=== PATIENT | female | born 1940 | race Caucasian/White ===

== ENCOUNTER 2016-11-09 10:55 | Emergency (ER) | payer MEDICARE, OTHER ==
[2016-11-09 12:07] LABS: Urine Bacteria Absent (Absent); Urine Bilirubin Negative (Negative); Urine Glucose Negative (Negative); Urine Nitrite Negative (Negative)
[2016-11-09] MEDS: NS 0.9% 1000 ML* 2,000 ML IV ONE ×2 (12:08→13:15)
[2016-11-09 12:18] LABS: Hemoglobin 8.9 g/dl (12.0-16.0)
[2016-11-09 12:22] LABS: Hematocrit 27 % (35-47); Mean Corpuscular HGB Conc 33 g/dl (31-36); Mean Corpuscular Hemoglobin 29 pg (27-31); Mean Corpuscular Volume 87 fL (80-97); Mean Platelet Volume 12 um3 (7.4-10.4); Red Blood Count 3.06 10^6/ul (4.0-5.4); Red Cell Distribution Width 16 % (10.5-15); White Blood Count 4.6 10^3/ul (3.5-10.8)
[2016-11-09 12:27] LABS: Add Diff/Slide Review? Slide Review Added; Comments Flag Yes
[2016-11-09 12:33] LABS: Albumin 3.8 g/dL (3.2-5.2); BUN/Creatinine Ratio 19.7 (8-20); C Reactive Protein 10.24 mg/L (< 5.00); Calcium 9.2 mg/dL (8.6-10.3); EGFR African American 44.4 (>60); EGFR Non-African American 34.6 (>60); Globulin 3.1 g/dL (2-4); Potassium 3.6 mmol/L (3.5-5.0); Total Bilirubin 2.1 mg/dL (0.2-1.0); Total Protein 6.9 g/dL (6.4-8.9)
[2016-11-09 12:43] LABS: Add Path Review? YES; Hypochromasia 1+
[2016-11-09 12:44] LABS: Schistocytes 2+
--- NOTE | 2016-11-09 13:02 | RAD ---
Indication: Diplopia. CT of the brain was performed without IV contrast. Ventricular structures are midline. No midline shift is noted. The extra-axial spaces are unremarkable. There is no evidence of intracranial mass or hemorrhage. No other high or low density lesions are identified. Mastoid air cells and paranasal sinuses are otherwise unremarkable. IMPRESSION: No intracranial mass or hemorrhage is noted.
[2016-11-09 13:06] LABS: Troponin I 0.38 ng/mL (<0.04)
[2016-11-09 13:21] LABS: TSH (Thyroid Stimulating Horm) 10.68 mcIU/mL (0.34-5.60)
--- NOTE | 2016-11-09 15:06 | ED ---
Bernardino Delvalle Alfonso, scribed for Sam Funes MD on 11/09/16 at 1331 . Complex/Multi-Sys Presentation - HPI Summary HPI Summary: This patient is a 76 y.o. female presenting to [facility] with a concern of possible allergic reaction since a cat bite on her left arm approximately 5 days ago. The allergic reaction is characterized by petechiae on her body. It is accompanied by a right-sided headache. Sx alleviated and aggravated by nothing. She reports hematuria, loss of appetite, nausea, dizziness, weakness, unsteadiness upon standing, and tremors. Denies vertigo, neck pain, loss of vision, and photophobia. After visiting another ED soon after the cat bite, she was prescribed doxycycline and clindamycin. She stopped taking these prescriptions because her PCP found high kidney function in blood and urine testing. PMHx of HTN for which she takes one aspirin a day and A-fib. No PMHx of CHF or strokes. SHx of occasional drinking. - History Of Current Complaint Chief Complaint: EDGeneral Time Seen by Provider: 11/09/16 11:15 Hx Obtained From: Patient Onset/Duration: Gradual Onset, Lasting Days - approximately 5 days ago., Still Present Timing: Constant Severity Currently: Moderate Severity Initially: Moderate Aggravating Factor(s): Nothing Alleviating Factor(s): Nothing - Allergies/Home Medications Allergies/Adverse Reactions: Allergies Allergy/AdvReac Type Severity Reaction Status Date / Time Penicillin G Allergy Unknown Verified 11/09/16 12:07 Reaction Details Sulfa Antibiotics Allergy Itching Verified 11/09/16 12:07 Home Medications: Home Medications Atorvastatin* [Lipitor 10 MG*] 10 mg PO DAILY 11/09/16 [History Confirmed ] Esomeprazole Magnesium [Nexium] 40 mg PO DAILY 11/09/16 [History Confirmed 11/09] Levothyroxine TAB* [Synthroid TAB*] 125 mcg PO DAILY 11/09/16 [History Confirmed 11/09/16] Ursodiol 1 cap PO TID 11/09/16 [History Confirmed 11/09/16] PMH/Surg Hx/FS Hx/Imm Hx Cardiovascular History: Reports: Hx Atrial Fibrillation Opthamlomology History: Denies: Hx Legally Blind Infectious Disease History: No Infectious Disease History: Denies: Traveled Outside the [place] in Last 30 Days - Family History Known Family History: Positive: Cardiac Disease - Mother positive at unspecified age - Social History Alcohol Use: Occasionally Review of Systems Negative: Fever Positive: Nausea Positive: hematuria Negative: Arthralgia - Neck pain Positive: Rash - petechiae Neurological: Other - Dizziness, unsteadiness upon standing, loss of appetite and tremors; denies vertigo, loss of vision, and photophobia Positive: Headache - Right-sided, Weakness All Other Systems Reviewed And Are Negative: Yes Physical Exam - Summary Physical Exam Summary: The patient is well-nourished in no mild distress. Anxious. The skin is pale and there is a cat bite on her left arm without signs of any infection. Mild ecchymosis around the bite werner. Diffuse petechiae in all extremities. HEENT: The head is normocephalic and atraumatic. The pupils are equal and reactive. The conjunctivae are clear and without drainage. Sclera is not jaundiced or icteric. Nares are patent and without drainage. Mouth reveals dry mucous membranes and the throat is without erythema and exudate. The external ears are intact. The ear canals are patent and without drainage. The tympanic membranes are intact. Neck is supple with full range of motion and non-tender. There are no carotid bruits. There is no neck vein distension. No nuchal rigidity Respiratory: Chest is non-tender. Lungs are clear to auscultation and breath sounds are symmetrical and equal. Cardiovascular: Hear is regular rate and rhythm. There is no murmur or rub auscultated. There is no peripheral edema and pulses are symmetrical and equal. Abdomen: The abdomen is soft and non-tender. There are normal bowel sounds heard in all four quadrants and there is no organomegaly palpated. No CVA tenderness Musculoskeletal: There is no back pain noted. Extremities are non-tender with full range of motion. There is good capillary refill. There is no peripheral edema or calf tenderness elicited. Neurological: Patient is alert and oriented to person, place and time. The patient has symmetrical motor strength in all four extremities. Cranial nerves are grossly intact. Deep tendon reflexes are symmetrical and equal in all four extremities. Psychiatric: The patient has an appropriate affect and does not exhibit any anxiety or depression. Triage Information Reviewed: Yes Vital Signs On Initial Exam: Initial Vitals Temp Pulse Resp BP Pulse Ox 97.5 F 82 20 155/94 100 11/09/16 10:58 11/09/16 10:58 11/09/16 10:58 11/09/16 10:58 11/09/16 10:58 Vital Signs Reviewed: Yes Diagnostics - Vital Signs Vital Signs Temp Pulse Resp BP Pulse Ox 11/09/16 11:03 98.0 F 84 20 155/94 83 11/09/16 10:58 97.5 F 82 20 155/94 100 - Laboratory Lab Results: Lab Results 11/09/16 11/09/16 11/09/16 Range/Units 11:54 12:10 12:10 WBC 4.6 (3.5-10.8) 10^3/ul RBC 3.06 L (4.0-5.4) 10^6/ul Hgb 8.9 L (12.0-16.0) g/dl Hct 27 L (35-47) % MCV 87 (80-97) fL MCH 29 (27-31) pg MCHC 33 (31-36) g/dl RDW 16 H (10.5-15) % Plt Count 8 L* (150-450) 10^3/ul MPV 12 H (7.4-10.4) um3 Neut % (Auto) 60.8 (38-83) % Lymph % (Auto) 28.4 (25-47) % Woodson % (Auto) 8.1 (1-9) % Eos % (Auto) 2.0 (0-6) % Baso % (Auto) 0.7 (0-2) % Absolute Neuts (auto) 2.8 (1.5-7.7) 10^3/ul Absolute Lymphs (auto) 1.3 (1.0-4.8) 10^3/ul Absolute Monos (auto) 0.4 (0-0.8) 10^3/ul Absolute Eos (auto) 0.1 (0-0.6) 10^3/ul Absolute Basos (auto) 0 (0-0.2) 10^3/ul Absolute Nucleated RBC 0 10^3/ul Nucleated RBC % 0 Normal RBC Morphology Not Reportable Hypochromasia 1+ Schistocytes 2+ Hem Pathologist Commnt Pending INR (Anticoag Therapy) 0.97 (0.89-1.11) APTT 29.1 (26.0-36.3) seconds Sodium (133-145) mmol/L Potassium (3.5-5.0) mmol/L Chloride (101-111) mmol/L Carbon Dioxide (22-32) mmol/L Anion Gap (2-11) mmol/L BUN (6-24) mg/dL Creatinine (0.51-0.95) mg/dL Est GFR ( Amer) (>60) Est GFR (Non-Af Amer) (>60) BUN/Creatinine Ratio (8-20) Glucose (70-100) mg/dL Lactic Acid (0.5-2.0) mmol/L Calcium (8.6-10.3) mg/dL Magnesium (1.9-2.7) mg/dL Total Bilirubin (0.2-1.0) mg/dL AST (13-39) U/L ALT (7-52) U/L Alkaline Phosphatase (34-104) U/L Troponin I (<0.04) ng/mL C-Reactive Protein (< 5.00) mg/L Total Protein (6.4-8.9) g/dL Albumin (3.2-5.2) g/dL Globulin (2-4) g/dL Albumin/Globulin Ratio (1-3) TSH (0.34-5.60) mcIU/mL Urine Color Yellow Urine Appearance Clear Urine pH 6.0 (5-9) Ur Specific Canvas 1.004 L (1.010-1.030) Urine Protein Negative (Negative) Urine Ketones Negative (Negative) Urine Blood 2+ H (Negative) Urine Nitrate Negative (Negative) Urine Bilirubin Negative (Negative) Urine Urobilinogen Negative (Negative) Ur Leukocyte Esterase Trace H (Negative) Urine WBC (Auto) Trace(0-5/hpf) (Absent) Urine RBC (Auto) 1+(3-5/hpf) H (Absent) Ur Squamous Epith Cells Present H (Absent) Urine Bacteria Absent (Absent) Urine Glucose Negative (Negative) 11/09/16 11/09/16 Range/Units 12:10 12:10 WBC (3.5-10.8) 10^3/ul RBC (4.0-5.4) 10^6/ul Hgb (12.0-16.0) g/dl Hct (35-47) % MCV (80-97) fL MCH (27-31) pg MCHC (31-36) g/dl RDW (10.5-15) % Plt Count (150-450) 10^3/ul MPV (7.4-10.4) um3 Neut % (Auto) (38-83) % Lymph % (Auto) (25-47) % Woodson % (Auto) (1-9) % Eos % (Auto) (0-6) % Baso % (Auto) (0-2) % Absolute Neuts (auto) (1.5-7.7) 10^3/ul Absolute Lymphs (auto) (1.0-4.8) 10^3/ul Absolute Monos (auto) (0-0.8) 10^3/ul Absolute Eos (auto) (0-0.6) 10^3/ul Absolute Basos (auto) (0-0.2) 10^3/ul Absolute Nucleated RBC 10^3/ul Nucleated RBC % Normal RBC Morphology Hypochromasia Schistocytes Hem Pathologist Commnt INR (Anticoag Therapy) (0.89-1.11) APTT (26.0-36.3) seconds Sodium 135 (133-145) mmol/L Potassium 3.6 (3.5-5.0) mmol/L Chloride 102 (101-111) mmol/L Carbon Dioxide 27 (22-32) mmol/L Anion Gap 6 (2-11) mmol/L BUN 29 H (6-24) mg/dL Creatinine 1.47 H (0.51-0.95) mg/dL Est GFR ( Amer) 44.4 (>60) Est GFR (Non-Af Amer) 34.6 (>60) BUN/Creatinine Ratio 19.7 (8-20) Glucose 82 (70-100) mg/dL Lactic Acid 1.1 (0.5-2.0) mmol/L Calcium 9.2 (8.6-10.3) mg/dL Magnesium 2.0 (1.9-2.7) mg/dL Total Bilirubin 2.10 H (0.2-1.0) mg/dL AST 50 H (13-39) U/L ALT 46 (7-52) U/L Alkaline Phosphatase 182 H (34-104) U/L Troponin I 0.38 H* (<0.04) ng/mL C-Reactive Protein 10.24 H (< 5.00) mg/L Total Protein 6.9 (6.4-8.9) g/dL Albumin 3.8 (3.2-5.2) g/dL Globulin 3.1 (2-4) g/dL Albumin/Globulin Ratio 1.2 (1-3) TSH 10.68 H (0.34-5.60) mcIU/mL Urine Color Urine Appearance Urine pH (5-9) Ur Specific Canvas (1.010-1.030) Urine Protein (Negative) Urine Ketones (Negative) Urine Blood (Negative) Urine Nitrate (Negative) Urine Bilirubin (Negative) Urine Urobilinogen (Negative) Ur Leukocyte Esterase (Negative) Urine WBC (Auto) (Absent) Urine RBC (Auto) (Absent) Ur Squamous Epith Cells (Absent) Urine Bacteria (Absent) Urine Glucose (Negative) Result Diagrams: 11/09/16 12:10 11/09/16 12:10 Lab Statement: Any lab studies that have been ordered have been reviewed, and results considered in the medical decision making process. - CT CT of the brain w/o IV contrast. CT Interpretation: No Acute Changes - No intracranial mass or hemorrhage is noted CT Interpretation Completed By: Radiologist - EKG 1152 Cardiac Rate: NL EKG Rhythm: Sinus Rhythm - BPM 77 EKG Interpretation: Poor R-wave progression, Normal axis, Non stemi. Re-Evaluation - Re-Evaluation First Eval Re-Evaluation Time: 13:26 Complex Multi-Symp Course/Dx Assessment/Plan: This 76 y/o female pt presents to ED with concern of "possible reaction to a cat bite" on her LUE arm 5 days ago. Possitve orthostatic dizziness, trouble with balance, and nausea. Upon examination pt is noted with diffuse petechiae both BUE and BLE. Negative sign of infection or inflammation around bite werner on LUE noted. Mild ecchymosis noted around bite werner. Blood work is noted with platelet count of 8 [address] of 0[address]38. [address] Brain was benign. EKG was noted with poor r-wave progression without ST and with normal axis. 30 minutes critical care time. Pt will be transfered to [facility] for platlet transfusion and electrophorsis. Accepting docotor is Dr. Comer and plan of care was discussed with accepting doctor at 14:48 - Diagnoses Differential Diagnoses/HQI/PQRI: Other - ttp, drug induced, mi Provider Diagnoses: Thrombocytopenia, Renal failure, Elevated LFTs, Anemia - Physician Notifications Discussed Care Of Patient With: Isamar Bolivar Time Discussed With Above Provider: 13:37 Instructed by Provider To: Transfer - [facility] - Critical Care Time Critical Care Time: 30-74 min - 30 minutes Discharge - Discharge Plan Condition: Stable Disposition: TRANS HIGHER LVL OF CARE FAC Referrals: Non Staff,Doctor [Primary Care Provider] - The documentation as recorded by the Bernardino sandoval Alfonso accurately reflects the service I personally performed and the decisions made by , Sam Fuens MD.
[2016-11-09] MEDS ORDERED: Acetaminophen TAB* 325 MG PO ONE (16:32)
[2016-11-09 17:15] VITALS: BP 136/72
--- NOTE | 2016-11-09 23:12 | CONS ---
CONSULTATION REPORT: DATE OF CONSULT: 11/09/16 - EMERGENCY DEPT REQUESTING PHYSICIAN FOR CONSULT: Dr. Funes. REASON FOR CONSULTATION: Evaluation for admission. HISTORY OF PRESENT ILLNESS: Ms. Byrd is a 76-year-old female patient who on Thursday last week, she got bit by a cat. She lives in [place]. She was seen at [facility]. She was started on clindamycin and also started on doxycycline. She said the rash improved; however, she was following with her primary. She had some outpatient blood work done because her urine appeared to be very concentrated and dark, and she actually had a BMP, that sounds like chemistries, and urine obtained. At some point last week, I believe it was either or Thursday, she got a call from her doctor while she was driving to the [place] area to visit her daughter and was told to stop her antibiotics because it appeared that her kidney function had worsened. The patient also was ordered to have an outpatient renal ultrasound while she was here in [place]. She unfortunately today was having symptoms of rash and bruising all over her body. She was having some headache, feeling a little off, was very weak and drowsy and just really fatigued and she has been complaining of nausea. Her daughter was very concerned and brought her in to the hospital. She was evaluated here in the ED. It was noted that she was profoundly thrombocytopenic. She was noted to have an elevated troponin, elevated bilirubin. She had schistocytes on her blood smear and it appeared that she was anemic, which the family says is new. There was concern and we were asked to evaluate for admission. PAST MEDICAL HISTORY: Significant for: 1. AFib. 2. Hypertension. 3. GERD. 4. Hypothyroidism. SURGICAL HISTORY: 1. She has had a right upper lobe tumor extraction done at [facility]. 2. She has had a laparoscopic cholecystectomy. 3. She has had a hysterectomy. HOME MEDICATIONS: According to her recall include: 1. Synthroid 125 mcg daily. 2. Atorvastatin 10 mg daily. 3. Nexium 40 mg daily. 4. Ursodiol 1 capsule p.o. t.i.d. ALLERGIES TO MEDICATIONS: Include PENICILLIN and SULFA. FAMILY HISTORY: Mother had a history of brain cancer. Father had a history of lung cancer. SOCIAL HISTORY: She does not smoke. She does drink a martini a day, but she has not drunk in several days since being ill. She is . Surrogate decision maker is her daughter. REVIEW OF SYSTEMS: There was no documented fever. She denied having any significant weight change. There was no double vision. She denies having any ear discharge. There was no rhinorrhea. No sore throat. No thyroid enlargement. She denies having any chest pain. There was no orthopnea. No nocturnal dyspnea. There was no abdominal pain, but she does admit to having some nausea. She denies having any double vision. No ear discharge. She denies having any weakness to one side. No facial drooping. No slurring of the words. She does state that she has had trouble getting words out at times, and review of 14 systems completed, all others negative. PHYSICAL EXAM: Reveals vital signs, blood pressure 141/86, pulse 74, respirations 20, O2 sat 94%, and temperature 98. Generally, at this time, Ms. Byrd is a 76-year- old female patient. She is sitting in the ER stretcher. She does not appear to be in any acute distress. HEENT: Head is atraumatic and normocephalic. Eyes: EOMs are intact. Sclerae anicteric and not pale. Neck: Supple. Throat: Oral mucosa appears to be dry. No oropharyngeal erythema. Heart: Sounds S1, S2. Regular rate and rhythm. No murmurs, rubs, or gallops. Lungs: Clear to auscultation. Abdomen was soft, flat, nontender. Bowel sounds present. Extremities: Pulses 2+ throughout. She is able to move all 4 extremities with 5/5 strength. Neurologically, she is awake. She is alert. Her speech to me is clear. Her tongue is midline. She had no facial drooping. Iron Installer were equal. [id number] intact. She had no gross focal deficits. Her skin is intact, but she does have what appears to be a diffuse petechial rash, particularly on her extremities. She does have some bruising where the cat bite was on the left upper extremity and left forearm. There is no erythema surrounding that now. DIAGNOSTIC STUDIES/LAB DATA: Today revealed a WBC of 4.6, RBC of 3.06, hemoglobin 8.9, hematocrit of 27, platelet count of 8. INR was 0.97. PTT of 29. Sodium was 135, potassium 3.6, chloride 102, bicarb 27, BUN 29, creatinine 1.47, glucose 82, lactic 1.2, calcium 9.2, magnesium 2.0. Total bili 2.1, AST 50, ALT 46, alk phos 182. Troponin 0.38. TSH was 10.68. Urine showed 2+ blood , trace leukocyte esterase, 1+ rbc. She did have a brain CT obtained today as well, which revealed no intracranial mass or hemorrhages noted. She had an EKG obtained today, which showed a normal sinus rhythm, rate of 79. No ST elevation or T-wave inversion. Old medical records were reviewed and were limited. ASSESSMENT AND PLAN: Ms. Byrd is a 76-year-old female patient coming into the ER today with complaints of nausea, feeling weak, feeling disoriented, on evaluation was found to have profound thrombocytopenia, found to have schistocytes on smear, and also found to have an elevated bili. On evaluation and discussing with the patient, I am very concerned that she could have TTP. I did touch base with Dr. Rodriguez who was concerned as well and the fact that she had schistocytes, there was concern that she may need plasma exchange. So, at this point, I did touch base with Dr. Funes and we felt that she would be better served at a tertiary care center such as [facility] or [place] where they can offer plasma exchange or plasmapheresis. I touched base with the family and they are in agreement with this. The patient will be again deferred to a tertiary care center for further evaluation. TIME SPENT: Time spent on the consult was approximately 60 minutes; greater than half the time was spent [id number] with the patient obtaining my history and physical, other half the time spent going over the plan of care with the patient and implementing the plan of care. I did discuss the plan of care with my attending, Dr. Bolivar; she is in agreement. FELIX KAY NP CC: Dr. Funes; Dr. Rodriguez* [id number]/[facility] #: [id number] [facility]ITALShazia
== END 2016-11-09 17:33 | disposition short-term general hospital (02) ==
LOC: ED 10:55
DX: D69.6 Thrombocytopenia, unspecified (principal); N19 Unspecified kidney failure; D64.9 Anemia, unspecified; R79.89 Other specified abnormal findings of blood chemistry
CPT/HCPCS: 36415; 70450; 80053; 81003; 81015; 83605; 83735; 84443; 84484; 85025; 85060; 85610; 85730; 86140; 87086; 93005; 99283; A9270-GY